=== PATIENT | female | born 1970 | race African-American/Black ===

== ENCOUNTER 2017-07-10 05:44 | Emergency (ER) | payer OTHER ==
[~2017-07-10] VITALS: Ht 165.1 cm; Wt 98.0 kg
[~2017-07-10 05:44] MED LIST: ANTI-ITCH28 G1 TP; IBUPROFEN600 MG ORAL; METOPROLOL TART25 MG ORAL; SOMA350 MG PO
[2017-07-10 05:57] VITALS: BP 112/79
[2017-07-10] MEDS ORDERED: NORCO 10-325 T1 EACH ORAL (05:57)
[2017-07-10] MEDS ORDERED: METOPROLOL TART25 MG ORAL (05:57)
[2017-07-10] MEDS ORDERED: SYNTHROID25 MCG ORAL (05:57)
[2017-07-10] MEDS ORDERED: KENALOG 0.025%15 GM APPLIC (05:57)
[2017-07-10] MEDS ORDERED: TRAZODONE HCL150 MG ORAL (05:57)
[2017-07-10] MEDS ORDERED: ZOFRAN4 M3 ORAL (05:57)
[2017-07-10] MEDS ORDERED: GABAPENTIN800 MG ORAL (05:57)
[2017-07-10] MEDS ORDERED: OMEPRAZOLE20 M2 ORAL (05:57)
[2017-07-10] MEDS ORDERED: IBUPROFEN600 MG ORAL (06:02)
[2017-07-10] MEDS ORDERED: LIDOCAINE700 M1 TP (06:02)
[2017-07-10 06:20] VITALS: BP 112/79
--- NOTE | 2017-07-11 13:59 | Emergency Room Report ---
History of Present Illness General Chief Complaint: Pain Source: Patient Present Illness HPI Patient is a 46-year-old female who presented after increased shoulder pain. Patient prior history of the pain to the left shoulder she stated the pain been present for approximately 8 months. Patient states that this had been initiated by an injection into her shoulder for Depo-Provera. The patient denies recent injury. She denies any overhead work. The pain is worse with movement. The patient states the pain is primarily to the lateral aspect of the left shoulder. The patient is right-hand dominant. Allergies: Coded Allergies: HYDROMORPHONE (Verified Allergy, Unknown, 07/10/17) Patient History Past Medical History: see triage record Last Menstrual Period: unk Now: No - depo-vera 04/2017 Reviewed Nursing Documentation: PMH: Agreed; PSxH: Agreed Nursing Documentation-PMH Hx Hypertension: Yes Hx Pacemaker: No - CHRONIC BACK PAIN Review of Systems All Other Systems: negative except mentioned in HPI Physical Exam Vital Signs Date Time Temp Pulse Resp B/P (MAP) Pulse Ox O2 Delivery O2 Flow Rate FiO2 07/10/17 05:48 98.4 85 16 112/79 95 Room Air 98.4 General Appearance: well appearing, no apparent distress, obese, Chronically Ill Head: normocephalic, atraumatic ENT: hearing grossly normal, normal voice Neck: full range of motion, supple Respiratory: no respiratory distress, speaking full sentences Cardiovascular #1: normal inspection, normal peripheral pulses, regular rate, rhythm Gastrointestinal: normal inspection, normal bowel sounds, non tender, soft Musculoskeletal: normal inspection, no calf tenderness Neurologic: normal inspection, alert, oriented x3, responsive, normal gait Psychiatric: mood/affect normal Skin: no rash Medical Decision Making Diagnostic Impression: Primary Impression: Rotator cuff disorder ER Course Patient presented for shoulder pain. Differential diagnoses included was not limited to rotator cuff tendinitis, fracture, dislocation, a.c. separation, septic joint. Patient has a benign exam and does not appear to require any further imaging or laboratory testing at this time. The patient appears to have chronic pain which is lateralized to the left shoulder. This appears to be in the area of her left rotator cuff. The patient has no restriction of passive range of motion. The patient is advised outpatient MRI with primary care physician. The patient given a sling. She is given a prescription for lidocaine patch.The patient is advised to follow up with primary care doctor in 1-2 days. Patient is advised to return if any worsening condition or if any changes in status that are concerning. This report is dictated with [employer] agricultural loan officer software which may occasionally lead to discrepancies related to use of this software. Last Vital Signs Date Time Temp Pulse Resp B/P (MAP) Pulse Ox O2 Delivery O2 Flow Rate FiO2 07/10/17 06:20 85 16 112/79 95 Room Air 07/10/17 05:57 98.4 98.4 Status: improved Disposition: HOME, SELF-CARE Condition: Stable Scripts Ibuprofen* (MOTRIN*) 600 Mg Tablet 600 MG ORAL Q8H PRN for For Pain, #30 TAB 0 Refills Prov: Stephen Moffett MD 07/10/17 Lidocaine (Lidocaine) 1 Each Adh..patch 700 MG TP DAILY, #30 PATCH Prov: Stephen Moffett MD 07/10/17 Referrals: NOT CHOSEN IPA/MD,REFERRING Patient Instructions: Rotator Cuff Tendinitis Stephen Moffett MD July 11, 2017 13:58
== END 2017-07-10 06:20 | disposition home or self-care (01) ==
LOC: EMR 06:15
DX: M25.512 Pain in left shoulder (principal); I10 Essential (primary) hypertension; G89.29 Other chronic pain; M54.9 Dorsalgia, unspecified
CPT/HCPCS: 99284

== ENCOUNTER 2019-01-01 07:20 | Emergency (ER) | payer OTHER ==
[~2019-01-01] VITALS: Ht 165.1 cm; Wt 99.3 kg
[~2019-01-01 07:20] MED LIST changes: +GABAPENTIN800 MG ORAL; +KENALOG 0.025%15 GM APPLIC; +LIDOCAINE700 M1 TP; +NORCO 10-325 T1 EACH ORAL; +OMEPRAZOLE20 M2 ORAL; +SYNTHROID25 MCG ORAL; +TRAZODONE HCL150 MG ORAL; +ZOFRAN4 M3 ORAL
[2019-01-01 07:34] VITALS: BP 118/76
--- NOTE | 2019-01-01 07:34 | NUR ---
Patient walked in to ER due to pain on R foot . Pt claims she injured foot 2 months ago by a door. Patient alert and oriented x4 and ambulatory. calm and cooperative. no acute distress noted at this time. Addendum: 01/01/19 at 0740 by [email or web address] Patient denies numbness. notified 11/26 pain.
[2019-01-01] MEDS ORDERED: Ketorolac 60mg Inj IM ONE (07:45)
--- NOTE | 2019-01-01 07:45 | Emergency Room Report ---
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 She states that 2 months ago a door swung open and hit the top of her R. foot. She has had pain and swelling on the top of her R. foot and she states that the pain and swelling has recently worsened. She denies new injury. She has no other complaints. Allergies: Coded Allergies: HYDROMORPHONE (Verified Allergy, Unknown, 07/10/17) Patient History Past Medical History: see triage record, HTN Social History: Denies: smoking, alcohol use, drug use Last Menstrual Period: n/a Reviewed Nursing Documentation: PMH: Agreed; PSxH: Agreed Nursing Documentation-PMH Past Medical History: No History, Except For Hx Hypertension: Yes Hx Pacemaker: No - CHRONIC BACK PAIN Review of Systems All Other Systems: negative except mentioned in HPI Physical Exam Vital Signs Date Time Temp Pulse Resp B/P (MAP) Pulse Ox O2 Delivery O2 Flow Rate FiO2 01/01/19 07:25 98.4 95 18 123/75 (91) 95 Room Air Sp02 EP Interpretation: reviewed, normal General Appearance: no apparent distress, alert, GCS 15, non-toxic Head: normocephalic, atraumatic Eyes: bilateral eye normal inspection ENT: hearing grossly normal, normal pharynx, no angioedema, normal voice Neck: normal inspection, full range of motion Respiratory: no respiratory distress, no retraction, no accessory muscle use, speaking full sentences Rectal: deferred Musculoskeletal: back normal, gait/station normal, normal range of motion, other - TTP with swelling over anterior top of foot. Neurologic: alert, oriented x3, responsive, motor strength/tone normal, sensory intact, speech normal Psychiatric: judgement/insight normal, memory normal, mood/affect normal, no suicidal/homicidal ideation Skin: no rash, normal color Medical Decision Making Diagnostic Impression: Primary Impression: Foot contusion ER Course This patient has a foot contusion. Initially on plain film x-ray was concerned there was a fracture of the midfoot. However, I obtained a CT of the foot and there was no evidence of fracture. Overall, the patient's evaluation is benign. The patient is given close return precautions and follow instructions. Other X-Ray Diagnostic Results Other X-Ray Diagnostic Results : X-Ray ordered: R. foot xray # of Views/Limited Vs Complete: Complete Indication: Pain EP Interpretation: Yes Interpretation: no fractures Impression: No acute disease Electronically Signed by: Nita Duff DO CT/MRI/US Diagnostic Results CT/MRI/US Diagnostic Results : Imaging Test Ordered: CT foot Impression No acute findings. See official report in electronic medical record. Last Vital Signs Date Time Temp Pulse Resp B/P (MAP) Pulse Ox O2 Delivery O2 Flow Rate FiO2 01/01/19 07:34 98.2 72 18 118/76 97 Room Air Status: improved Disposition: HOME, SELF-CARE Condition: Improved Nita Duff DO Jan 01, 2019 07:45
--- NOTE | 2019-01-01 08:51 | NUR ---
ED Nurse Note: ERMD at bedside discussing about x-ray results.
--- NOTE | 2019-01-01 08:55 | NUR ---
ED Nurse Note: pt taken to CT scan in stable condition.
--- NOTE | 2019-01-01 09:06 | NUR ---
ED Nurse Note: pt came back from CT scan in stable condition.
--- NOTE | 2019-01-01 10:44 | Diagnostic Imaging Report ---
Indication: Right foot pain Technique: Continuous helical imaging of the right foot was obtained. Coronal 2-D reformatted images were also generated. Study obtained in a Siemens Sensation [address] total DLP: 281.5 mGycm CTD/vol: 9.4 mGy Comparison: None Findings: Alignment is normal. There is no acute fracture identified. No erosive changes identified. No abnormal fluid collections or significant soft tissue swelling appreciated. There is no osteochondral defect identified. No joint effusion seen. Mild periarticular spurs demonstrated within the midfoot consistent with osteoarthritis. Mild plantar calcaneal spurring noted. Small well-corticated ossicle demonstrated adjacent to the medial malleolus could be a reflection of prior injury. Small ossicle along the lateral part of the talus could be reflective of an old injury. IMPRESSION: No evidence of acute injury. Mild arthrosis Some signs of old ankle trauma The CT scanner at [facility] is accredited by the [employer] and the scans are performed using dose optimization techniques as appropriate to a performed exam including Automatic Exposure control.
--- NOTE | 2019-01-01 10:46 | Diagnostic Imaging Report ---
Indication: Foot Pain Comparison: None Findings: 3 views of the right foot were obtained. No acute fractures, malalignment, erosions or periostitis are identified. Soft tissues are unremarkable. Impression: No acute findings.
[2019-01-01] MEDS ORDERED: IBUPROFEN600 MG ORAL (11:11)
--- NOTE | 2019-01-01 11:21 | NUR ---
ER DISCHARGE NOTE: Patient is cleared to be discharged per ERMD, pt is aox4, on room air, with stable vital signs. pt was given dc and prescription instructions, pt was able to verbalize understanding, pt id band removed without complications. pt is able to ambulate with steady gait. pt took all belongings.
[2019-01-01 11:22] VITALS: BP 127/72
== END 2019-01-01 11:23 | disposition home or self-care (01) ==
LOC: EMR 07:40
DX: S90.31XA Contusion of right foot, initial encounter (principal); I10 Essential (primary) hypertension; W22.8XXA Striking against or struck by other objects, initial encounter; Y93.9 Activity, unspecified; Y92.9 Unspecified place or not applicable; Z88.5 Allergy status to narcotic agent
CPT/HCPCS: 73630; 73700; 96372; Z7502; 99284

== ENCOUNTER 2019-07-23 08:14 | Emergency (ER) | payer OTHER ==
[~2019-07-23] VITALS: Ht 162.6 cm; Wt 99.8 kg
[~2019-07-23 08:14] MED LIST changes: +POLYTRIM OP SOL10 ML OPHTHALM
[2019-07-23 08:22] VITALS: BP 107/68
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
--- NOTE | 2019-07-23 09:11 | NUR ---
ED Nurse Note: X ray at bed side
[2019-07-23] MEDS ORDERED: IBUPROFEN600 M1 ORAL (09:22)
[2019-07-23 09:27] VITALS: BP 107/68
--- NOTE | 2019-07-23 09:33 | NUR ---
ED Nurse Note: Pt cleared by health care Provider for discharge. DC instructions/prescription was given and explained to pt and verbalized understanding of teachings. All medical deviecs such as ID band removed. Pt is AAO x4, ambulatory and left with all personal belongings.
--- NOTE | 2019-07-23 10:16 | Diagnostic Imaging Report ---
Clinical Indication:Reason For Exam: TRAUMA Technique: 3 views of the right wrist Comparison: None Findings: No acute fractures. No dislocations. Joint spaces are preserved. Impression: Negative
--- NOTE | 2019-07-23 10:18 | Diagnostic Imaging Report ---
Indication: Pain, trauma Technique: 3 views right hand Comparison: none Findings: No acute fractures. No dislocations. There is mild narrowing of the fifth distal interphalangeal joint. Impression: Negative
== END 2019-07-23 09:33 | disposition home or self-care (01) ==
LOC: EMR 08:40
DX: S66.911A Strain of unspecified muscle, fascia and tendon at wrist and hand level, right hand, initial encounter (principal); X58.XXXA Exposure to other specified factors, initial encounter; Y92.9 Unspecified place or not applicable; Z88.6 Allergy status to analgesic agent; I10 Essential (primary) hypertension
CPT/HCPCS: 73110; 73130; Z7502; 99284

== ENCOUNTER 2019-12-03 11:32 | Emergency (ER) | payer OTHER ==
[~2019-12-03] VITALS: Ht 165.1 cm; Wt 100.7 kg
[~2019-12-03 11:32] MED LIST changes: +IBUPROFEN600 M1 ORAL
[2019-12-03 11:38] VITALS: BP 125/83
--- NOTE | 2019-12-03 11:38 | NUR ---
ED Nurse Note: PT walked in to ed for C/O possible insect bites to BLE. pt reports being itchy and painful at the same time.
[2019-12-03] MEDS ORDERED: HYDROCORTISONE-30 GM TOPIC (11:58)
[2019-12-03] MEDS ORDERED: BENADRYL CRE1 APPLIC TOPIC (11:58)
--- NOTE | 2019-12-03 11:58 | Emergency Room Report ---
History of Present Illness General Chief Complaint: Skin Rash/Abscess Source: Patient Present Illness HPI 49-year-old female presents with bug bites to the bilateral lower extremities, she endorses itching severity is mild, constant no aggravating factors alleviating factors appear to be scratching it patient denies any fevers or chills patient presents for evaluation and treatment Allergies: Coded Allergies: HYDROMORPHONE (Verified Allergy, Unknown, 07/10/17) COVID-19 Screening Contact w/high risk pt: No Recent Travel to affected area: No Experienced COVID-19 symptoms?: No COVID-19 Testing performed CORPORATE STRATEGY ASSOCIATE: No Patient History Past Medical History: see triage record Social History: Reports: smoking - Social, alcohol use - Social Last Menstrual Period: na Reviewed Nursing Documentation: PMH: Agreed; PSxH: Agreed Nursing Documentation-PMH Past Medical History: No History, Except For Hx Hypertension: Yes Hx Pacemaker: No - CHRONIC BACK PAIN Review of Systems All Other Systems: negative except mentioned in HPI Physical Exam Vital Signs Date Time Temp Pulse Resp B/P (MAP) Pulse Ox O2 Delivery O2 Flow Rate FiO2 12/03/19 11:34 97.0 94 16 125/83 (97) 98 Room Air General Appearance: well appearing, no apparent distress Head: normocephalic, atraumatic ENT: hearing grossly normal, normal voice Neck: full range of motion, supple Respiratory: no respiratory distress, speaking full sentences Neurologic: alert, normal gait Psychiatric: mood/affect normal Skin: rash - Right lower extremity: raised red rash measuring 3 cm right lower extremity, left lower extremity: 1 cm raised red rash Medical Decision Making Diagnostic Impression: Primary Impression: Insect bite Qualified Codes: S80.861A - Insect bite (nonvenomous), right lower leg, initial encounter; W57.XXXA - Bitten or stung by nonvenomous insect and other nonvenomous arthropods, initial encounter ER Course 49-year-old female presents with insect bites to the left and right lower extremity, no evidence of superinfection at this point patient counseled to continue utilizing Benadryl will provide patient with Benadryl cream disposition home with return precautions follow-up with PCP Last Vital Signs Date Time Temp Pulse Resp B/P (MAP) Pulse Ox O2 Delivery O2 Flow Rate FiO2 12/03/19 11:38 97.0 94 16 125/83 98 Room Air Disposition: HOME, SELF-CARE Condition: Stable Scripts Hydrocortisone/Aloe (Hydrocortisone/Aloe 1% Cream*) Y Cr 1 APPLIC TOPIC Q6H PRN for Itching, #30 GM Prov: Yakov Be MD 12/03/19 Diphenhydramine HCl/Zinc Acet (Benadryl Itch Stopping Crm) 28.3 Gm Cream..g. 1 APPLIC TOPIC BID, #28.3 APPLIC Prov: Yakov Be MD 12/03/19 Referrals: [facility] Patient Instructions: Insect Bite, [id number] Additional Instructions: The patient was provided with discharge instructions, notified to follow-up with a primary care doctor and or specialist in the next 24-48 hours, and to return to the ED if they have worsening of their symptoms. Please note that this report is being documented using [employer] technology. This can lead to erroneous entry secondary to incorrect interpretation by the dictating instrument. Yakov Be MD Dec 03, 2019 11:58
[2019-12-03] MEDS ORDERED: DiphenhydrAMINE & Zinc 28g Cream TOPIC ONE (12:00)
[2019-12-03] MEDS ORDERED: Acetaminophen 500mg (ES) tab ORAL ONE (12:15)
[2019-12-03 12:23] VITALS: BP 125/83
== END 2019-12-03 13:00 | disposition home or self-care (01) ==
LOC: EMR 11:40
DX: S80.861A Insect bite (nonvenomous), right lower leg, initial encounter (principal); S80.862A Insect bite (nonvenomous), left lower leg, initial encounter; W57.XXXA Bitten or stung by nonvenomous insect and other nonvenomous arthropods, initial encounter; Z88.6 Allergy status to analgesic agent; Y92.9 Unspecified place or not applicable; I10 Essential (primary) hypertension; F17.200 Nicotine dependence, unspecified, uncomplicated
CPT/HCPCS: 99282